=== PATIENT | female | born 1945 | race Native Hawaiian/Other Pacific Islander ===

== ENCOUNTER → 2016-08-26 | Outpatient (REF) | payer MEDICARE, OTHER ==
[2016-08-26 19:23] LABS: BLOOD UREA NITROGEN 16 MG/DL (7-18); CREATININE FOR GFR 0.78 MG/DL (0.55-1.02); GLOMERULAR FILTRATION RATE > 60.0 (>39)
== END ==
LOC: M LABNEURO 17:08
PROVIDERS: ATTEND Psychiatry & Neurology Neurology
DX: Z01.812 Encounter for preprocedural laboratory examination (principal)

== ENCOUNTER → 2016-10-22 | Outpatient (CLI) | payer MEDICARE, OTHER | LOC: M RAD 12:12 | PROVIDERS: ATTEND Internal Medicine Medical Oncology | DX: Z12.31 Encounter for screening mammogram for malignant neoplasm of breast (principal) ==

== ENCOUNTER → 2017-07-07 | Outpatient (REF) | payer MEDICARE, OTHER ==
[2017-07-07 17:53] LABS: ALBUMIN/GLOBULIN RATIO 1.33 (1.00-1.93); ALKALINE PHOSPHATASE 59 U/L (45-117); ALT/SGPT 26 U/L (12-78); ANION GAP 6 MEQ/L (8-16); AST/SGOT 22 U/L (7-37); BILIRUBIN,TOTAL 0.2 MG/DL (0.2-1.0); BLOOD UREA NITROGEN 17 MG/DL (7-18); CALCIUM LEVEL 8.9 MG/DL (8.8-10.2); CARBON DIOXIDE LEVEL 30 MEQ/L (21-32); CHLORIDE LEVEL 107 MEQ/L (98-107); CREATININE FOR GFR 0.69 MG/DL (0.55-1.30); FREE T4 0.95 NG/DL (0.76-1.46); GLOMERULAR FILTRATION RATE > 60.0 (>39); GLUCOSE, FASTING 105 MG/DL (70-100); SODIUM LEVEL 143 MEQ/L (136-145); VITAMIN B12 LEVEL 1640 PG/ML (247-911)
[2017-07-07 17:54] LABS: FOLATE > 24.0 NG/ML (>5.4)
[2017-07-07 18:06] LABS: BASO % 0.7 % (0.0-1.0); EOS # 0.2 10^3/uL (0.0-0.50); EOS % 3.3 % (0.0-3.0); HEMATOCRIT 39.9 % (36.0-47.0); HEMOGLOBIN 12.9 g/dl (12.0-16.0); IMMATURE GRANULOCYTE % 0.2 % (0-3.0); LYMPH % 34.4 % (24.0-44.0); MEAN CORPUSCULAR HEMOGLOBIN 29.3 pg (27.0-33.0); MEAN CORPUSCULAR HGB CONC 32.3 g/dl (32.0-36.5); MEAN CORPUSCULAR VOLUME 90.7 fl (80.0-96.0); MONO # 0.5 10^3/uL (0.0-0.8); MONO % 8.8 % (0.0-5.0); NEUTROPHILS % 52.6 % (36.0-66.0); PLATELET COUNT, AUTOMATED 192 10^3/uL (150-450); RED CELL DISTRIBUTION WIDTH 11.9 % (11.5-14.5); WHITE BLOOD COUNT 5.7 10^3/uL (4.0-10.0)
== END ==
LOC: M LABNEURO 14:21
DX: R41.3 Other amnesia (principal); Z13.29 Encounter for screening for other suspected endocrine disorder
CPT/HCPCS: 82746

== ENCOUNTER 2017-07-27 11:07 | Emergency (ER) | payer MEDICARE, OTHER ==
[2017-07-27] MEDS: NS 1,000 ML IV (12:04)
[2017-07-27] MEDS: ONDANSETRON 4MG/2ML VIAL (J2405) IV (12:04)
[2017-07-27 12:08] LABS: BASO % 0.2 % (0.0-1.0); HEMATOCRIT 40.8 % (36.0-47.0); HEMOGLOBIN 13.3 g/dl (12.0-16.0); IMMATURE GRANULOCYTE % 0.3 % (0-3.0); LYMPH # 0.8 10^3/uL (1.5-4.5); LYMPH % 12.6 % (24.0-44.0); MEAN CORPUSCULAR HEMOGLOBIN 29.1 pg (27.0-33.0); MEAN CORPUSCULAR HGB CONC 32.6 g/dl (32.0-36.5); MEAN CORPUSCULAR VOLUME 89.3 fl (80.0-96.0); MONO # 0.5 10^3/uL (0.0-0.8); MONO % 7.1 % (0.0-5.0); NEUTROPHILS # 5.3 10^3/uL (1.8-7.7); NEUTROPHILS % 79.8 % (36.0-66.0); PLATELET COUNT, AUTOMATED 166 10^3/uL (150-450); RED BLOOD COUNT 4.57 10^6/uL (4.00-5.40); RED CELL DISTRIBUTION WIDTH 11.9 % (11.5-14.5); WHITE BLOOD COUNT 6.7 10^3/uL (4.0-10.0)
[2017-07-27 12:37] LABS: ALBUMIN 3.7 GM/DL (3.2-5.2); ALKALINE PHOSPHATASE 55 U/L (45-117); ALT/SGPT 23 U/L (12-78); AMYLASE 59 U/L (25-115); ANION GAP 8 MEQ/L (8-16); AST/SGOT 19 U/L (7-37); BILIRUBIN,DIRECT < 0.1 MG/DL (0.0-0.2); BILIRUBIN,TOTAL 0.3 MG/DL (0.2-1.0); BLOOD UREA NITROGEN 13 MG/DL (7-18); CALCIUM LEVEL 8.3 MG/DL (8.8-10.2); CARBON DIOXIDE LEVEL 27 MEQ/L (21-32); CHLORIDE LEVEL 105 MEQ/L (98-107); CREATININE FOR GFR 0.68 MG/DL (0.55-1.30); GLOMERULAR FILTRATION RATE > 60.0 (>39); GLUCOSE, FASTING 117 MG/DL (70-100); LIPASE 106 U/L (73-393); POTASSIUM SERUM 3.5 MEQ/L (3.5-5.1); SODIUM LEVEL 140 MEQ/L (136-145); TOTAL PROTEIN 7.4 GM/DL (6.4-8.2)
[2017-07-27] MEDS ORDERED: ISOVUE-370 76% 100ML VIAL (Q9967) As Ordered (12:47)
== END 2017-07-27 15:13 | disposition home or self-care (01) ==
LOC: M ED 11:07
DX: E83.51 Hypocalcemia (principal); E86.0 Dehydration; I10 Essential (primary) hypertension; Z98.890 Other specified postprocedural states; Z88.5 Allergy status to narcotic agent; Z79.899 Other long term (current) drug therapy; Z79.82 Long term (current) use of aspirin
CPT/HCPCS: J2405

== ENCOUNTER 2017-10-06 08:55 | Day surgery (SDC) | payer MEDICARE, OTHER ==
[2017-10-06] MEDS ORDERED: PROPOFOL 200 MG/20 ML VIAL As Ordered (10:31)
[2017-10-06] MEDS ORDERED: LIDOCAINE 2% INJ 100 MG/5 ML SDV (FOR ANES.) As Ordered (10:31)
== END 2017-10-06 11:18 | disposition home or self-care (01) ==
LOC: M OPP 08:55
DX: R12 Heartburn (principal); K31.89 Other diseases of stomach and duodenum; K44.9 Diaphragmatic hernia without obstruction or gangrene; I10 Essential (primary) hypertension; E78.5 Hyperlipidemia, unspecified; K21.9 Gastro-esophageal reflux disease without esophagitis; M81.0 Age-related osteoporosis without current pathological fracture; M19.90 Unspecified osteoarthritis, unspecified site; M26.601 Right temporomandibular joint disorder, unspecified; Z85.3 Personal history of malignant neoplasm of breast; Z92.3 Personal history of irradiation; H25.9 Unspecified age-related cataract; Z86.010 Personal history of colon polyps; K64.8 Other hemorrhoids; K57.30 Diverticulosis of large intestine without perforation or abscess without bleeding; Z88.8 Allergy status to other drugs, medicaments and biological substances; Z88.5 Allergy status to narcotic agent; Z79.82 Long term (current) use of aspirin; Z79.899 Other long term (current) drug therapy; Z80.3 Family history of malignant neoplasm of breast
CPT/HCPCS: 43239

== ENCOUNTER → 2017-10-23 | Outpatient (CLI) | payer MEDICARE, OTHER | LOC: M RAD 09:58 | DX: Z12.31 Encounter for screening mammogram for malignant neoplasm of breast (principal); Z85.3 Personal history of malignant neoplasm of breast; N60.31 Fibrosclerosis of right breast; N60.32 Fibrosclerosis of left breast | CPT/HCPCS: 77067 ==

== ENCOUNTER 2018-01-21 06:02 | Day surgery (SDC) | payer MEDICARE, OTHER ==
[~2018-01-21 06:02] MED LIST: ACETAMINOPHEN 325 MG TAB PO
[2018-01-21] MEDS ORDERED: PHENYLEPHRINE HCL 10 % OPHTH. SOL 5ML OD (07:00)
[2018-01-21] MEDS: LIDOCAINE 3.5 % 1ML OPHTH TOPICAL GEL OU (07:01)
[2018-01-21] MEDS: CYCLOPENTOLATE 2% OPHTH SOLN 2ML BTL OD (07:01)
[2018-01-21] MEDS: TROPICAMIDE 1% OPHTH SOLN 2ML OD (07:01)
[2018-01-21] MEDS ORDERED: PROPARACAINE 0.5% OPHTH SOL 15ML OD (07:01)
[2018-01-21] MEDS: OFLOXACIN 0.3 % (OCUFLOX) OPTH SOL 5ML OD (07:01)
[2018-01-21] MEDS: PHENYLEPHRINE 2.5% OPHTH SOL 2ML OD (07:01)
[2018-01-21] MEDS ORDERED: fentaNYL 100 MCG/2 ML INJECTION (J3010) As Ordered ×2 (07:02→08:18)
[2018-01-21] MEDS ORDERED: MIDAZOLAM INJ 2 MG/2 ML VIAL (J2250) As Ordered (07:02)
[2018-01-21] MEDS ORDERED: ONDANSETRON 4MG/2ML VIAL (J2405) As Ordered ×2 (08:07→09:14)
[2018-01-21] MEDS: LIDOCAINE 1% SDV 5 ML VIAL As Ordered (08:09)
[2018-01-21] MEDS: HEALON DUET (HEALON 10MG/ML 0.55ML & HEALON ENDOCOAT 30MG/ML 0.85ML) As Ordered ×2 (08:09→08:10)
[2018-01-21] MEDS: POVIDONE-IODINE 5% OPHTH PREP SOL 30ML As Ordered (08:09)
[2018-01-21] MEDS: BSS with VANC/TOB/EPI for EYE CASES IR (08:10)
[2018-01-21] MEDS: CEFUROXIME 1MG/0.1ML INTRACAMERAL INJ As Ordered (08:10)
[2018-01-21] MEDS: ACETYLCHOLINE OPHTH SOLN 1% 2ML (MIOCHOL-E) As Ordered (08:12)
[2018-01-21] MEDS ORDERED: AcetaZOLAMIDE 500 MG ER CAP PO (08:45)
[2018-01-21] MEDS ORDERED: TRIMETHOBENZAMIDE 300 MG CAP PO (08:45)
[2018-01-21] MEDS ORDERED: KETOROLAC 0.5% OPHTH SOLN OD (08:45)
[2018-01-21] MEDS ORDERED: ONDANSETRON 4MG/2ML VIAL (J2405) IV (09:30)
== END 2018-01-21 09:35 | disposition home or self-care (01) ==
LOC: M SDC 06:02
DX: H26.9 Unspecified cataract (principal); H40.9 Unspecified glaucoma; I65.21 Occlusion and stenosis of right carotid artery; K58.9 Irritable bowel syndrome, unspecified; K21.9 Gastro-esophageal reflux disease without esophagitis; R11.10 Vomiting, unspecified; M12.9 Arthropathy, unspecified; M81.0 Age-related osteoporosis without current pathological fracture; M54.9 Dorsalgia, unspecified; F41.9 Anxiety disorder, unspecified; R51 Headache; R06.83 Snoring; I10 Essential (primary) hypertension; F03.90 Unspecified dementia, unspecified severity, without behavioral disturbance, psychotic disturbance, mood disturbance, and anxiety; Z88.5 Allergy status to narcotic agent; Z88.6 Allergy status to analgesic agent; Z79.899 Other long term (current) drug therapy; Z79.82 Long term (current) use of aspirin; Z85.3 Personal history of malignant neoplasm of breast; Z92.3 Personal history of irradiation
CPT/HCPCS: 66984

== ENCOUNTER 2018-02-11 06:14 | Day surgery (SDC) | payer MEDICARE, OTHER ==
[2018-02-11] MEDS ORDERED: PHENYLEPHRINE HCL 10 % OPHTH. SOL 5ML OS (07:00)
[2018-02-11] MEDS ORDERED: PROPARACAINE 0.5% OPHTH SOL 15ML OS (07:01)
[2018-02-11] MEDS ORDERED: MIDAZOLAM INJ 2 MG/2 ML VIAL (J2250) As Ordered ×2 (07:13→08:07)
[2018-02-11] MEDS: LIDOCAINE 3.5 % 1ML OPHTH TOPICAL GEL OU (07:18)
[2018-02-11] MEDS: OFLOXACIN 0.3 % (OCUFLOX) OPTH SOL 5ML OS (07:18)
[2018-02-11] MEDS: CYCLOPENTOLATE 2% OPHTH SOLN 2ML BTL OS (07:18)
[2018-02-11] MEDS: PHENYLEPHRINE 2.5% OPHTH SOL 2ML OS (07:18)
[2018-02-11] MEDS: TROPICAMIDE 1% OPHTH SOLN 2ML OS (07:18)
[2018-02-11] MEDS ORDERED: ONDANSETRON 4MG/2ML VIAL (J2405) As Ordered (07:45)
[2018-02-11] MEDS ORDERED: METOCLOPRAMIDE INJ 10MG/2ML VIAL (J2765) As Ordered (07:45)
[2018-02-11] MEDS ORDERED: dexameTHASONE 4 MG/ML 1ML VIAL (J1100) As Ordered (07:45)
[2018-02-11] MEDS ORDERED: fentaNYL 100 MCG/2 ML INJECTION (J3010) As Ordered (07:46)
[2018-02-11] MEDS ORDERED: SCOPOLAMINE 1MG TRANSDERMAL PATCH As Ordered (07:59)
[2018-02-11] MEDS: SCOPOLAMINE 1MG TRANSDERMAL PATCH TOP (08:00)
[2018-02-11] MEDS: POVIDONE-IODINE 5% OPHTH PREP SOL 30ML As Ordered (08:36)
[2018-02-11] MEDS: LIDOCAINE 1% SDV 5 ML VIAL As Ordered (08:36)
[2018-02-11] MEDS: HEALON DUET (HEALON 10MG/ML 0.55ML & HEALON ENDOCOAT 30MG/ML 0.85ML) As Ordered (08:36)
[2018-02-11] MEDS: BSS with VANC/TOB/EPI for EYE CASES IR (08:37)
[2018-02-11] MEDS: CEFUROXIME 1MG/0.1ML INTRACAMERAL INJ As Ordered (08:37)
[2018-02-11] MEDS ORDERED: KETOROLAC 0.5% OPHTH SOLN OS (09:00)
[2018-02-11] MEDS ORDERED: TRIMETHOBENZAMIDE 300 MG CAP PO (09:00)
[2018-02-11] MEDS: AcetaZOLAMIDE 500 MG ER CAP PO (09:51)
== END 2018-02-11 10:04 | disposition home or self-care (01) ==
LOC: M SDC 06:14
DX: H26.9 Unspecified cataract (principal); H40.812 Glaucoma with increased episcleral venous pressure, left eye; K58.8 Other irritable bowel syndrome; F41.9 Anxiety disorder, unspecified; F32.9 Major depressive disorder, single episode, unspecified; Z85.3 Personal history of malignant neoplasm of breast; Z79.899 Other long term (current) drug therapy; K21.9 Gastro-esophageal reflux disease without esophagitis
CPT/HCPCS: 66984

== ENCOUNTER → 2018-02-16 | Outpatient (REF) | payer MEDICARE, OTHER ==
[2018-02-16 13:14] LABS: ALBUMIN 4.4 GM/DL (3.2-5.2); ALBUMIN/GLOBULIN RATIO 1.33 (1.00-1.93); ALKALINE PHOSPHATASE 68 U/L (45-117); ALT/SGPT 36 U/L (12-78); ANION GAP 7 MEQ/L (8-16); AST/SGOT 19 U/L (7-37); BILIRUBIN,TOTAL 0.5 MG/DL (0.2-1.0); BLOOD UREA NITROGEN 17 MG/DL (7-18); CALCIUM LEVEL 9.6 MG/DL (8.8-10.2); CARBON DIOXIDE LEVEL 29 MEQ/L (21-32); CHLORIDE LEVEL 105 MEQ/L (98-107); CHOLESTEROL LEVEL 185 MG/DL (<200); CHOLESTEROL RISK RATIO 2.761 (<5); CREATININE FOR GFR 0.77 MG/DL (0.55-1.30); GLOMERULAR FILTRATION RATE > 60.0 (>39); GLUCOSE, FASTING 106 MG/DL (70-100); HDL CHOLESTEROL 67 MG/DL (>40); LDL CHOLESTEROL 90 MG/DL (<100); MAGNESIUM LEVEL 2.5 MG/DL (1.8-2.4); NON-HDL-C 118 MG/DL; POTASSIUM SERUM 3.9 MEQ/L (3.5-5.1); SODIUM LEVEL 141 MEQ/L (136-145); TOTAL PROTEIN 7.7 GM/DL (6.4-8.2); TRIGLYCERIDES LEVEL 139 MG/DL (<150)
[2018-02-16 13:15] LABS: BASO # 0.1 10^3/uL (0.0-0.2); EOS # 0.4 10^3/uL (0.0-0.50); EOS % 7.3 % (0.0-3.0); HEMATOCRIT 44.9 % (36.0-47.0); HEMOGLOBIN 14.4 g/dl (12.0-15.5); IMMATURE GRANULOCYTE % 0.2 % (0-3.0); LYMPH # 2.4 10^3/uL (1.5-4.5); LYMPH % 46.6 % (24.0-44.0); MEAN CORPUSCULAR HEMOGLOBIN 29.3 pg (27.0-33.0); MEAN CORPUSCULAR HGB CONC 32.1 g/dl (32.0-36.5); MEAN CORPUSCULAR VOLUME 91.4 fl (80.0-96.0); MONO # 0.4 10^3/uL (0.0-0.8); NEUTROPHILS # 1.9 10^3/uL (1.8-7.7); NEUTROPHILS % 36.9 % (36.0-66.0); PLATELET COUNT, AUTOMATED 225 10^3/uL (150-450); RED BLOOD COUNT 4.91 10^6/uL (4.00-5.40); RED CELL DISTRIBUTION WIDTH 12.1 % (11.5-14.5); WHITE BLOOD COUNT 5.2 10^3/uL (4.0-10.0)
== END ==
LOC: M LABDRAW1 12:03
DX: I10 Essential (primary) hypertension (principal); F03.90 Unspecified dementia, unspecified severity, without behavioral disturbance, psychotic disturbance, mood disturbance, and anxiety; E78.2 Mixed hyperlipidemia
CPT/HCPCS: 83735

== ENCOUNTER → 2018-04-17 | Outpatient (REF) | payer MEDICARE, OTHER ==
[~2018-04-17] MED LIST changes: -ACETAMINOPHEN 325 MG TAB PO; +AMOX875T PO; +ASPI81TA85 PO; +ATEN25TA PO; +ATOR1TAB21 PO; +AZIT-12 PO; +CALCTAB7 PO; +COMB0.2S; +EVISTA PO; +GLUCTAB6 PO; +LATA5OPD PO; +LORA10CA PO; +MAGN250T3 PO; +MICA5TAB PO; +MULT1TAB18 PO; +OMEP40CA2 PO; +PATA2.5S PO; +PRED20TA PO; +PROM25TA GT; +REFR0.5D8 OU; +TRAZ-160 PO; +TYLE325T5 PO; +VENTAER INH; +VERA24TASA PO; +VITA10002 PO; +VITA30004 PO; +VITA400C67 PO; +VITA500T PO; +XALA0.007 OU; +ZITHTAB PO; +[UNRECOGNIZED DRUG - CODE] PO; +[UNRECOGNIZED DRUG - OTHER] PO
[2018-04-17 16:02] LABS: BLOOD UREA NITROGEN 17 MG/DL (7-18); CREATININE FOR GFR 0.84 MG/DL (0.55-1.30); GLOMERULAR FILTRATION RATE > 60.0 (>39)
== END ==
LOC: M LABDRAW1 11:57
PROVIDERS: ATTEND Psychiatry & Neurology Neurology
DX: N18.9 Chronic kidney disease, unspecified (principal)

== ENCOUNTER → 2018-04-17 | Outpatient (REF) | payer MEDICARE, OTHER ==
[2018-04-17 16:02] LABS: BLOOD UREA NITROGEN 17 MG/DL (7-18); CALCIUM LEVEL 9.3 MG/DL (8.8-10.2); CARBON DIOXIDE LEVEL 31 MEQ/L (21-32); CHLORIDE LEVEL 105 MEQ/L (98-107); GLOMERULAR FILTRATION RATE > 60.0 (>39); GLUCOSE, FASTING 135 MG/DL (70-100); MAGNESIUM LEVEL 2.1 MG/DL (1.8-2.4); POTASSIUM SERUM 4.1 MEQ/L (3.5-5.1); SODIUM LEVEL 140 MEQ/L (136-145)
== END ==
LOC: M LABDRAW1 11:55
PROVIDERS: ATTEND Physician Assistant
DX: E83.41 Hypermagnesemia (principal)

== ENCOUNTER 2018-04-21 15:27 | Emergency (ER) | payer MEDICARE, OTHER ==
[2018-04-21] MEDS: IPRATROPIUM 0.5MG/ALBUTEROL 2.5MG INH SOL UD 3ML (DUONEB)(J7620) NEB (15:59)
[2018-04-21 16:35] LABS: BASO % 0.1 % (0.0-1.0); HEMATOCRIT 41.1 % (36.0-47.0); HEMOGLOBIN 13.4 g/dl (12.0-15.5); IMMATURE GRANULOCYTE % 0.3 % (0-3.0); LYMPH # 1.8 10^3/uL (1.5-4.5); LYMPH % 26.6 % (24.0-44.0); MEAN CORPUSCULAR HEMOGLOBIN 28.8 pg (27.0-33.0); MEAN CORPUSCULAR HGB CONC 32.6 g/dl (32.0-36.5); MEAN CORPUSCULAR VOLUME 88.2 fl (80.0-96.0); MONO # 0.3 10^3/uL (0.0-0.8); MONO % 4.5 % (0.0-5.0); NEUTROPHILS # 4.7 10^3/uL (1.8-7.7); NEUTROPHILS % 68.5 % (36.0-66.0); PLATELET COUNT, AUTOMATED 188 10^3/uL (150-450); RED BLOOD COUNT 4.66 10^6/uL (4.00-5.40); RED CELL DISTRIBUTION WIDTH 11.9 % (11.5-14.5); WHITE BLOOD COUNT 6.9 10^3/uL (4.0-10.0)
[2018-04-21 17:07] LABS: ANION GAP 9 MEQ/L (8-16); BLOOD UREA NITROGEN 14 MG/DL (7-18); CALCIUM LEVEL 9.1 MG/DL (8.8-10.2); CARBON DIOXIDE LEVEL 25 MEQ/L (21-32); CHLORIDE LEVEL 104 MEQ/L (98-107); CREATININE FOR GFR 0.82 MG/DL (0.55-1.30); GLOMERULAR FILTRATION RATE > 60.0 (>39); GLUCOSE, FASTING 123 MG/DL (70-100); POTASSIUM SERUM 4.5 MEQ/L (3.5-5.1); SODIUM LEVEL 138 MEQ/L (136-145)
[2018-04-21] MEDS ORDERED: ISOVUE-370 76% 100ML VIAL (Q9967) As Ordered (17:11)
== END 2018-04-21 18:24 | disposition home or self-care (01) ==
LOC: M ED 15:27
DX: J20.9 Acute bronchitis, unspecified (principal); Z85.3 Personal history of malignant neoplasm of breast; Z79.82 Long term (current) use of aspirin; Z79.899 Other long term (current) drug therapy; Z88.5 Allergy status to narcotic agent
CPT/HCPCS: Q9967

== ENCOUNTER → 2018-07-06 | Outpatient (REF) | payer MEDICARE, OTHER ==
[~2018-07-06] MED LIST changes: -PROM25TA GT; +PROM25TA12 GT
[2018-07-06 19:02] LABS: BLOOD UREA NITROGEN 21 MG/DL (7-18); CREATININE FOR GFR 0.84 MG/DL (0.55-1.30); GLOMERULAR FILTRATION RATE > 60.0 (>39)
== END ==
LOC: M LABDRAW1 17:43
PROVIDERS: ATTEND Neurological Surgery
DX: Z13.89 Encounter for screening for other disorder (principal); D32.0 Benign neoplasm of cerebral meninges

== ENCOUNTER → 2018-08-31 | Outpatient (CLI) | payer MEDICARE, OTHER ==
[~2018-08-31] MED LIST changes: +ASPI-261 PO; +LATA0.0013 PO; -LATA5OPD PO; -[UNRECOGNIZED DRUG - OTHER] PO
--- NOTE | 2018-08-31 17:22 | REP ---
REASON: Foot pain. PRIORS: None. K-wire fixators are seen in the 5th metatarsal affixing an old fracture. Mild to moderate degenerative changes are seen throughout the foot but with particular attention down to the first metatarsal phalangeal joint which is seen with slight medial subluxation due to asymmetric joint space narrowing, deformation of the head of the first metatarsal, and marginal osteophytosis. The findings are likely at least in part post-surgical but could be a combination of post-surgical and degenerative arthritic. There is no acute abnormality noted. IMPRESSION:Chronic changes as described above. Electronically Signed by Shelton Pagan DO 08/31/2018 06:18 P
== END ==
LOC: M WUC 12:54
PROVIDERS: ATTEND Physician Assistant
DX: M25.775 Osteophyte, left foot (principal); M19.072 Primary osteoarthritis, left ankle and foot; Z96.7 Presence of other bone and tendon implants

== ENCOUNTER → 2019-01-08 | Outpatient (REF) | payer MEDICARE, OTHER ==
[~2019-01-08] MED LIST changes: +CYAN100049 PO; -TRAZ-160 PO; +TRAZ-252 PO; -VITA10002 PO
== END ==
LOC: M LABDRAW1 15:53
PROVIDERS: ATTEND Psychiatry & Neurology Neurology
DX: G70.00 Myasthenia gravis without (acute) exacerbation (principal)

== ENCOUNTER → 2019-02-02 | Outpatient (REF) | payer MEDICARE, OTHER ==
[2019-02-02 14:45] LABS: BLOOD UREA NITROGEN 14 MG/DL (7-18); CREATININE FOR GFR 0.82 MG/DL (0.55-1.30); GLOMERULAR FILTRATION RATE > 60.0 (>39)
== END ==
LOC: M LABDRAW1 13:51
PROVIDERS: ATTEND Neurological Surgery
DX: Z13.89 Encounter for screening for other disorder (principal); D32.9 Benign neoplasm of meninges, unspecified; I10 Essential (primary) hypertension

== ENCOUNTER → 2019-02-18 | Outpatient (REF) | payer MEDICARE, OTHER ==
[~2019-02-18] MED LIST changes: -OMEP40CA2 PO; +OMEP40CA97 PO
[2019-02-18 16:05] LABS: BLOOD UREA NITROGEN 13 MG/DL (7-18); CALCIUM LEVEL 9.2 MG/DL (8.8-10.2); CARBON DIOXIDE LEVEL 30 MEQ/L (21-32); CHLORIDE LEVEL 106 MEQ/L (98-107); GLOMERULAR FILTRATION RATE > 60.0 (>39); GLUCOSE, FASTING 97 MG/DL (70-100); POTASSIUM SERUM 3.8 MEQ/L (3.5-5.1); SODIUM LEVEL 139 MEQ/L (136-145)
== END ==
LOC: M LAB REF 15:33
PROVIDERS: ATTEND Family Medicine
DX: Z01.810 Encounter for preprocedural cardiovascular examination (principal); H02.403 Unspecified ptosis of bilateral eyelids

== ENCOUNTER → 2019-06-08 | Outpatient (REF) | payer MEDICARE, OTHER ==
[2019-06-09 13:05] LABS: HEPATITIS A ANTIBODY IGM NEGATIVE (NEGATIVE); HEPATITIS B CORE ANTIBODY IGM NEGATIVE (NEGATIVE); HEPATITIS B SURFACE ANTIGEN NEGATIVE (NEGATIVE); HEPATITIS C VIRUS ABY INDEX 0.1 INDEX (<0.8)
== END ==
LOC: M LAB REF 12:05
PROVIDERS: ATTEND Internal Medicine
DX: Z11.59 Encounter for screening for other viral diseases (principal)

== ENCOUNTER → 2020-05-06 | Outpatient (CLI) | payer MEDICARE, OTHER ==
[~2020-05-06] MED LIST changes: +ACET325T43 PO; -ASPI-261 PO; +ASPI-559 PO; -ASPI81TA85 PO; +ASPI81TA86 PO; +CALC-211 PO; -CALCTAB7 PO; +D31000TA2 PO; +ECOT81TA5 PO; +FEXO180T58 PO; +MICA40TA PO; +MONT5TAB2 PO; +OMEG1CAP16 PO; +OYST500T11 PO; +PANT40TA29 PO; +RA M500C PO; +ULTR5TAB PO; +VITA-243 PO; -VITA500T PO; +VITMTA PO; +[UNRECOGNIZED DRUG - OTHER] PO
== END ==
LOC: M LABSMTC 08:18
PROVIDERS: ATTEND Anesthesiology
DX: Z01.812 Encounter for preprocedural laboratory examination (principal); Z20.828 Contact with and (suspected) exposure to other viral communicable diseases

== ENCOUNTER 2020-05-10 11:00 | Day surgery (SDC) | payer MEDICARE, OTHER ==
[~2020-05-10] VITALS: Ht 152.4 cm; Wt 57.6 kg
[~2020-05-10 11:00] MED LIST changes: +NS 1,000 ML IV ONE
[2020-05-10] MEDS ORDERED: LIDOCAINE 2% 100MG/5ML SDV (FOR ANES.) As Ordered ONE (11:52)
[2020-05-10] MEDS ORDERED: propofoL 200 MG/20 ML VIAL As Ordered ONE (11:52)
[2020-05-10] MEDS ORDERED: fentaNYL 100 MCG/2 ML INJECTION (J3010) As Ordered ONE (12:46)
--- NOTE | 2020-05-10 13:18 | ROOR ---
Patient Name: Lenka Naqvi Procedure Date: 05/10/2020 12:34 PM Date of : 1945 Age: 75 Room: [facility] Gender: Female Note Status: Finalized Procedure: Upper Endoscopy + Biopsies Indications: Heartburn, Exclusion of Ruby's esophagus Providers: Isaías Escobar MD Referring MD: Connie Torres DO Requesting Provider: Medicines: Monitored Anesthesia Care Complications: No immediate complications. Procedure: Pre-Anesthesia Assessment: - The heart rate, respiratory rate, oxygen saturations, blood pressure, adequacy of pulmonary ventilation, and response to care were monitored throughout the procedure. The Endoscope was introduced through the mouth, and advanced to the second part of duodenum. The upper GI endoscopy was accomplished without difficulty. The patient tolerated the procedure well. Findings: The Z-line was regular and was found 40 cm from the incisors. Multiple biopsies were obtained with cold forceps for evaluation to rule out Ruby's Esophagus randomly at the gastroesophageal junction. No other significant abnormalities were identified in a careful examination of the stomach. Biopsies were taken with a cold forceps in the gastric antrum for Helicobacter pylori testing. The exam of the duodenum was otherwise normal. Impression: - Z-line regular, 40 cm from the incisors. - Multiple biopsies were obtained at the gastroesophageal junction. - Biopsies were taken with a cold forceps for Helicobacter pylori testing. - The examination was otherwise normal. Recommendation: - Patient has a contact number available for emergencies. The signs and symptoms of potential delayed complications were discussed with the patient. Return to normal activities tomorrow. Written discharge instructions were provided to the patient. - High fiber diet. - Discharge patient to home. - Follow an antireflux regimen. - Continue present medications. - Await pathology results. - Telephone GI clinic for pathology results in 1 week. - Return to referring physician. - The findings and recommendations were discussed with the patient. Procedure Code(s): --- Professional --- 20730, Esophagogastroduodenoscopy, flexible, transoral; with biopsy, single or multiple Diagnosis Code(s): --- Professional --- R12, Heartburn CPT copyright 2019 [employer]. All rights reserved. The codes documented in this report are preliminary and upon plant worker review may be revised to meet current compliance requirements. Isaías Escobar MD Isaías Escobar MD 05/10/2020 1:17:39 PM Electronically signed by Isaías Escobar MD Number of Addenda: 0 Note Initiated On: 05/10/2020 12:34 PM Estimated Blood Loss: Estimated blood loss: none.
--- NOTE | 2020-05-10 13:20 | ROOR ---
Patient Name: Lenka Naqvi Procedure Date: 05/10/2020 12:34 PM Date of : 1945 Age: 75 Room: [facility] Gender: Female Note Status: Finalized Procedure: Total Colonoscopy to Cecum Indications: Screening for colorectal malignant neoplasm Providers: Isaías Escobar MD Referring MD: Connie Torres DO Requesting Provider: Medicines: Monitored Anesthesia Care Complications: No immediate complications. Procedure: Pre-Anesthesia Assessment: - The heart rate, respiratory rate, oxygen saturations, blood pressure, adequacy of pulmonary ventilation, and response to care were monitored throughout the procedure. The Colonoscope was introduced through the anus and advanced to the cecum, identified by appendiceal orifice and ileocecal valve. The colonoscopy was performed without difficulty. The patient tolerated the procedure well. The quality of the bowel preparation was excellent. Findings: The perianal and digital rectal examinations were normal. Non-bleeding internal hemorrhoids were found during retroflexion. The hemorrhoids were small and Grade I (internal hemorrhoids that do not prolapse). No other significant abnormalities were identified in a careful examination of the remainder of the colon. The exam was otherwise without abnormality on direct and retroflexion views. Impression: - Non-bleeding internal hemorrhoids. - The examination was otherwise normal on direct and retroflexion views. - No specimens collected. - The exam was otherwise normal to the cecum. Recommendation: - Patient has a contact number available for emergencies. The signs and symptoms of potential delayed complications were discussed with the patient. Return to normal activities tomorrow. Written discharge instructions were provided to the patient. - High fiber diet. - Discharge patient to home. - Continue present medications. - Repeat colonoscopy is not recommended due to current age (66 years or older) for screening purposes. - Return to referring physician. - The findings and recommendations were discussed with the patient. Procedure Code(s): --- Professional --- 01871, Colonoscopy, flexible; diagnostic, including collection of specimen(s) by brushing or washing, when performed (separate procedure) Diagnosis Code(s): --- Professional --- Z12.11, Encounter for screening for malignant neoplasm of colon K64.0, First degree hemorrhoids CPT copyright 2019 [employer] [place] [employer]. All rights reserved. The codes documented in this report are preliminary and upon billing collections specialist review may be revised to meet current compliance requirements. Isaías Escobar MD Isaías Escobar MD 05/10/2020 1:20:23 PM Electronically signed by Isaías Escobar MD Number of Addenda: 0 Note Initiated On: 05/10/2020 12:34 PM Estimated Blood Loss: Estimated blood loss: none.
[2020-05-10 13:40] VITALS: BP 127/65
== END 2020-05-10 13:51 | disposition home or self-care (01) ==
LOC: M OPP 11:00
PROVIDERS: ATTEND Internal Medicine Gastroenterology
DX: Z12.11 Encounter for screening for malignant neoplasm of colon (principal); R12 Heartburn; R10.9 Unspecified abdominal pain; K64.0 First degree hemorrhoids; D13.0 Benign neoplasm of esophagus; D13.1 Benign neoplasm of stomach; I10 Essential (primary) hypertension; E78.5 Hyperlipidemia, unspecified; M19.90 Unspecified osteoarthritis, unspecified site; F41.9 Anxiety disorder, unspecified; Z85.3 Personal history of malignant neoplasm of breast; Z92.3 Personal history of irradiation; Z88.5 Allergy status to narcotic agent; Z88.6 Allergy status to analgesic agent; Z79.82 Long term (current) use of aspirin; Z79.899 Other long term (current) drug therapy
CPT/HCPCS: 43239; 88305; G0121; J3010

== ENCOUNTER → 2020-08-09 | Outpatient (CLI) | payer MEDICARE, OTHER ==
[~2020-08-09] MED LIST changes: -ASPI-559 PO; +ASPI325T3 PO; +MONT10TA10 PO; -MONT5TAB2 PO; -NS 1,000 ML IV ONE
--- NOTE | 2020-08-09 14:52 | REPMRS ---
Patient History The patient states she had a clinical breast exam in 07/2020 Patient has history of cancer in the left breast at age 67 and had first child at age 32. Family history of breast cancer in maternal aunt, breast cancer in maternal aunt, breast cancer in maternal aunt. Malignant lumpectomy of the left breast, 2012. Radiation therapy of the left breast, 2012. Took tamoxifen for 5 years. 3D TOMOSYNTHESIS WAS PERFORMED. Volpara breast density b. Digital Woman Screen Mammo: August 09, 2020 - Exam #: [id number] Bilateral CC and MLO view(s) were taken. Technologist: Cindy Houston, Technologist Prior study comparison: October 23, 2017, bilateral digital mammo screening bilat, performed at [facility]. October 22, 2016, bilateral digital mammo screening bilat, performed at [facility]. FINDINGS: There are scattered fibroglandular densities. There has been no change in the appearance of the mammogram from the prior studies. There is a mild amount of residual fibroglandular tissue which is fairly symmetric. There is no interval development of dominant mass, architectural distortion, or clustered microcalcification suggestive of malignancy. Large coarse benign appearing calcifications are present. No significant changes when compared with prior studies. Assessment: BI-RADS/ACR category 1 mammogram. Negative Mammogram. Recommendation Routine screening mammogram in 1 year (for women over age 40). This mammogram was interpreted with the aid of an FDA-approved computer-aided dectection system. Electronically Signed By: Brian Gomez MD 08/09/20 [id number]
== END ==
LOC: M WHC 13:52
PROVIDERS: ATTEND Internal Medicine
DX: Z12.31 Encounter for screening mammogram for malignant neoplasm of breast (principal)

== ENCOUNTER → 2020-09-11 | Outpatient (CLI) | payer SELFPAY | LOC: M LABSMTC 09:34 | PROVIDERS: ATTEND Pediatrics | DX: Z11.52 Encounter for screening for COVID-19 (principal) ==

== ENCOUNTER → 2020-11-13 | Outpatient (CLI) | payer MEDICARE, OTHER ==
[~2020-11-13] MED LIST changes: +OMEP40CA4 PO; -OMEP40CA97 PO
--- NOTE | 2020-11-13 22:46 | REP ---
INDICATION: PAIN IN LEFT ANKLE AND JOINTS OF LEFT FOOT COMPARISON: None. TECHNIQUE: AP, lateral, bilateral oblique views. FINDINGS: No acute fracture or dislocation. Skeletal structures and joint spaces are relatively age-appropriate and normal. Ankle mortise and talar dome appear smooth and symmetric without widening or periarticular/subchondral changes. Old fracture and fixation of the 5th metatarsal bone. IMPRESSION: No overt arthritic changes are appreciated. <Electronically signed by Kishor Mane > 11/13/20 1965
== END ==
LOC: M RAD 19:58
PROVIDERS: ATTEND Physician Assistant
DX: M25.572 Pain in left ankle and joints of left foot (principal)

== ENCOUNTER → 2021-06-13 | Outpatient (REF) | payer MEDICARE, OTHER ==
[~2021-06-13] MED LIST changes: +ASPI-584 PO; -ASPI325T3 PO; -MONT10TA10 PO; +MONT10TA97 PO; +VERA240T65 PO; -VERA24TASA PO
== END ==
LOC: M LAB REF 16:16
PROVIDERS: ATTEND Internal Medicine
DX: R30.0 Dysuria (principal)

== ENCOUNTER → 2021-06-15 | Outpatient (REF) | payer MEDICARE, OTHER | LOC: M LAB REF 13:12 | PROVIDERS: ATTEND Internal Medicine | DX: R19.7 Diarrhea, unspecified (principal) ==

== ENCOUNTER → 2021-06-22 | Outpatient (CLI) | payer MEDICARE, OTHER ==
[~2021-06-22] MED LIST changes: +GASTROGRAFIN SOLUTION 30ML (Q9963) ONE; +ISOVUE-370 76% 100ML VIAL ONE
== END ==
LOC: M PLAIMG 13:10
PROVIDERS: ATTEND Internal Medicine
DX: R10.32 Left lower quadrant pain (principal); R19.7 Diarrhea, unspecified; Z90.711 Acquired absence of uterus with remaining cervical stump; M51.36 Other intervertebral disc degeneration, lumbar region
CPT/HCPCS: 74178; Q9963; Q9967

== ENCOUNTER → 2021-08-01 | Outpatient (CLI) | payer MEDICARE, OTHER ==
[~2021-08-01] MED LIST changes: -D31000TA2 PO; +FEXO-117 PO; -FEXO180T58 PO; -GASTROGRAFIN SOLUTION 30ML (Q9963) ONE; -ISOVUE-370 76% 100ML VIAL ONE; +PROHANCE 279.3MG/ML 15ML VIAL As Ordered ONE; +VITA100093 PO
== END ==
LOC: M RAD 08:33
PROVIDERS: ATTEND Internal Medicine
DX: D48.7 Neoplasm of uncertain behavior of other specified sites (principal)
CPT/HCPCS: 74183; A9576

== ENCOUNTER → 2021-09-18 | Outpatient (CLI) | payer MEDICARE, OTHER ==
[~2021-09-18] MED LIST changes: -PROHANCE 279.3MG/ML 15ML VIAL As Ordered ONE
== END ==
LOC: M WHC 13:42
PROVIDERS: ATTEND Internal Medicine
DX: M85.89 Other specified disorders of bone density and structure, multiple sites (principal)

== ENCOUNTER → 2021-11-26 | Outpatient (REF) | payer MEDICARE, OTHER ==
[~2021-11-26] MED LIST changes: -GLUCTAB6 PO; +GLUCTAB7 PO
== END ==
LOC: M LAB REF 12:58
PROVIDERS: ATTEND Internal Medicine
DX: R19.7 Diarrhea, unspecified (principal)

== ENCOUNTER → 2021-12-20 | Outpatient (REF) | payer MEDICARE, OTHER | LOC: M LAB REF 19:47 | PROVIDERS: ATTEND Physician Assistant | DX: N39.0 Urinary tract infection, site not specified (principal) ==

== ENCOUNTER → 2022-01-08 | Outpatient (CLI) | payer MEDICARE, OTHER ==
[~2022-01-08] MED LIST changes: -ASPI-584 PO; +ASPI325T62 PO
== END ==
LOC: M RAD 10:40
PROVIDERS: ATTEND Internal Medicine
DX: R63.4 Abnormal weight loss (principal); R94.6 Abnormal results of thyroid function studies

== ENCOUNTER → 2022-01-14 | Outpatient (CLI) | payer MEDICARE, OTHER ==
[~2022-01-14] MED LIST changes: +E-Z-GAS II EFFERVESCENT PACKET (SODIUM BICARB./CITRIC ACID/SIMETHICONE) As Ordered ONE; +E-Z-HD 98% w/w 340GM SUSP BTL As Ordered ONE; +E-Z-PAQUE 96% w/w SUSP 176GM BTL As Ordered ONE
== END ==
LOC: M RAD 07:39
PROVIDERS: ATTEND Internal Medicine
DX: R10.9 Unspecified abdominal pain (principal); R19.7 Diarrhea, unspecified

== ENCOUNTER → 2022-04-03 | Outpatient (CLI) | payer MEDICARE, OTHER ==
[~2022-04-03] MED LIST changes: -E-Z-GAS II EFFERVESCENT PACKET (SODIUM BICARB./CITRIC ACID/SIMETHICONE) As Ordered ONE; -E-Z-HD 98% w/w 340GM SUSP BTL As Ordered ONE; -E-Z-PAQUE 96% w/w SUSP 176GM BTL As Ordered ONE; +GASTROGRAFIN SOLUTION 30ML As Ordered ONE
== END ==
LOC: M RAD 13:35
PROVIDERS: ATTEND Internal Medicine Gastroenterology
DX: R10.13 Epigastric pain (principal); R63.4 Abnormal weight loss
CPT/HCPCS: 74176; Q9963

== ENCOUNTER → 2022-08-19 | Outpatient (CLI) | payer MEDICARE, OTHER ==
[~2022-08-19] MED LIST changes: -GASTROGRAFIN SOLUTION 30ML As Ordered ONE
== END ==
LOC: M RAD 16:10
PROVIDERS: ATTEND Orthopaedic Surgery
DX: M79.661 Pain in right lower leg (principal)

== ENCOUNTER → 2022-09-26 | Outpatient (CLI) | payer MEDICARE, OTHER | LOC: M RAD 07:41 | PROVIDERS: ATTEND Orthopaedic Surgery | DX: Z01.818 Encounter for other preprocedural examination (principal) ==

== ENCOUNTER → 2023-03-14 | Outpatient (REF) | payer MEDICARE, OTHER | LOC: M LAB REF 16:12 | PROVIDERS: ATTEND Internal Medicine | DX: R31.9 Hematuria, unspecified (principal) ==

== ENCOUNTER 2024-04-23 08:39 | Day surgery (SDC) | payer MEDICARE, OTHER ==
[~2024-04-23] VITALS: Ht 149.9 cm; Wt 56.7 kg
[~2024-04-23 08:39] MED LIST changes: +ASPI-226 PO; -ASPI325T62 PO; +BAYE325T PO; +BIOT1CAP2 PO; +BUSP5TA PO; +CHOL4POW26 PO; +DICY20TA20 PO; +FAMO1TAB11 PO; +FEXO-116 PO; -FEXO-117 PO; +FEXO-193 PO; +GLUC1TAB58 PO; +OMEG500C PO; +TELM1TAB33 PO; +THERTAB52 PO; +VERA240T64 PO; +VITAE40CA PO
[2024-04-23 10:38] VITALS: TEMP 97.2
[2024-04-23 11:10] VITALS: BP 150/60; O2SAT 100
== END 2024-04-23 11:12 | disposition home or self-care (01) ==
LOC: M OPP 08:39
PROVIDERS: ATTEND Surgery
DX: K64.8 Other hemorrhoids (principal); K31.89 Other diseases of stomach and duodenum; I10 Essential (primary) hypertension; E78.00 Pure hypercholesterolemia, unspecified; K58.9 Irritable bowel syndrome, unspecified; K21.9 Gastro-esophageal reflux disease without esophagitis; M19.90 Unspecified osteoarthritis, unspecified site; F41.9 Anxiety disorder, unspecified; Z85.3 Personal history of malignant neoplasm of breast; Z92.3 Personal history of irradiation; Z88.5 Allergy status to narcotic agent; Z88.6 Allergy status to analgesic agent; Z79.82 Long term (current) use of aspirin; Z79.899 Other long term (current) drug therapy

== ENCOUNTER → 2024-05-19 | Outpatient (REF) | payer MEDICARE, OTHER | LOC: M LAB REF 18:25 | PROVIDERS: ATTEND Student in an Organized Health Care Education/Training Program | DX: R30.0 Dysuria (principal) ==

== ENCOUNTER → 2024-08-10 | Outpatient (REF) | payer MEDICARE, OTHER ==
[~2024-08-10] MED LIST changes: -FEXO-116 PO; +FEXO-189 PO
== END ==
LOC: EEVIPCON 17:14 → M LAB REF 17:14
PROVIDERS: ATTEND Internal Medicine
DX: N39.0 Urinary tract infection, site not specified (principal)

== ENCOUNTER → 2025-02-18 | Outpatient (CLI) | payer MEDICARE, OTHER | LOC: M PLARAD 12:22 | PROVIDERS: ATTEND Physical Medicine & Rehabilitation | DX: M54.2 Cervicalgia (principal) ==

== ENCOUNTER → 2025-03-08 | Outpatient (REF) | payer MEDICARE, OTHER | LOC: M LAB REF 14:30 | PROVIDERS: ATTEND Internal Medicine | DX: R30.0 Dysuria (principal) ==